=== PATIENT | female | born 1990 | race Caucasian/White ===

== ENCOUNTER 2020-01-04 19:21 | Emergency (ER) | payer OTHER, SELFPAY ==
--- NOTE | ~2020-01-04 | XR_ITS ---
EXAMINATION: XR chest 2V DATE: 01/04/2020 22:01 INDICATION: Right chest wall pain along the costal margin TECHNIQUE: PA and lateral views of the chest were obtained. COMPARISON: Chest radiograph dated 03/18/2017 FINDINGS: The lungs remain clear with no focal airspace opacities, pulmonary edema, pleural effusion or pneumot horax. The cardiomediastinal silhouette is normal. Visualized bones and soft tissues are unremarkable . IMPRESSION: 1. Normal chest radiograph. Reviewed, dictated and finalized at location A. IMPRESSION: 1. Normal chest radiograph.
--- NOTE | 2020-01-04 19:44 | PC.NURSE ---
Consent for release of medical records faxed to [facility].
[2020-01-04 19:45] VITALS: BP 149/95; PULSE 101; RESP 18; TEMP 36.9; O2SAT 96
--- NOTE | 2020-01-04 20:30 | PC.NURSE ---
[facility] contacted about records, states they will fax them now.
--- NOTE | 2020-01-04 20:49 | ED.ABDPAIN ---
HPI - Abdominal Pain General Chief Complaint: Abdominal Pain Stated Complaint: pain under rib cage. R side Source: patient Mode of arrival: ambulatory Limitations: no limitations History of Present Illness HPI narrative: This 29-year-old states she developed a sharp stabbing right upper quadrant pain 2 weeks ago made worse with taking a deep breath, sitting up or standing. Initially the pain was moderate and intermittent, lasting for several days, recurring after a day or so. Sometimes this pain is also associated with right anterior chest pain which shoots directly through to the right scapula. Last evening she ate for the 1st time in several days. Not long afterwards she had exacerbation of this poking -throbbing pain which has persisted throughout the day today. She demonstrates its location along the right medial costal margin, shooting up to the xiphoid process and sternum. She denies radiation into the back or around the abdomen. It is not associated with coughing or shortness of breath, heartburn, change in her bowel movements or melena. 12/26 ultrasound of G.B., CMP and CBC were negative. Review of [facility] records: 12/28 c/o pain above the right breast, right ribs, RUQ radiating to the right posterior shoulder. CMP, Lipase, CBC negative. CT abd/pelvis: bilateral nephrolithiasis. UA (menstruating) LE 1+, 5-10 WBC, 10-20 RBC. Dx. with pyelonephritis, tx with Toradol and Levaquin. 12/30 HIDA scan - negative. 01/03 note indicates improvement with GI cocktail, dx. with acute gastritis. Instructed to f/u with g.i. in 3 -4 weeks, prior if worsening symptoms. She has seen Dr. Dickinson's advanced practitioners Carla López and Nichole brown. After starting Levaquin and Toradol pt. developed a rash on her chest. Taken off both drugs. Started Tramadol today x 2 doses without improvement. Patient states she has had similar right upper quadrant stabbing pain in the past, the last time was 3 weeks ago, which only last for a few minutes. Onset (ago): minute(s) Related Data Home Medications Medication Instructions Recorded Confirmed Remeron See Rx Instructions .ROUTE .COMPLEX 01/04/20 01/04/20 Symbicort See Rx Instructions .ROUTE .COMPLEX 01/04/20 01/04/20 Xanax See Rx Instructions .ROUTE .COMPLEX 01/04/20 01/04/20 albuterol sulfate 1 inh INHALATION QID PRN 01/04/20 01/04/20 ondansetron HCl [Zofran] 4 mg PO Q6H PRN 01/04/20 01/04/20 tramadol 50 mg PO Q6H PRN 01/04/20 01/04/20 Allergies Allergy/AdvReac Type Severity Reaction Status Date / Time iohexol Allergy Rash Verified 01/04/20 22:44 [From contrast - CT, X-RAY] ketorolac [From Toradol] Allergy Hives Verified 01/04/20 19:50 levofloxacin [From Levaquin] Allergy Hives Verified 01/04/20 19:50 Review of Systems Constitutional: Constitutional: Denies chills and Denies fever(s) ENT: Denies dysphagia Cardiovascular: Comments: no other pain or symptoms in her chest. Respiratory: Respiratory: Reports no additional respiratory complaints Gastrointestinal: Gastrointestinal: Reports no additional gastrointestinal complaints Genitourinary: Genitourinary: Reports dysuria Comments: [id number] LMP 12/29/19 urine HCG: negative. Musculoskeletal: Musculoskeletal: Reports no additional musculoskeletal complaints Integumentary/Breasts: Skin/Breast: Denies rash Psychiatric: Psychiatric: Denies anxiety and Denies depression Hematologic/Lymphatic: Hematologic/Lymphatic: Denies easy bruising PMFSH Past Medical History Medical History (Updated 01/06/20 @ 00:00 by Mirza Phan) Asthma Social History Social History (Updated 01/04/20 @ 22:00 by Frankie Woo MD) Smoking status: Current every day smoker Exam Narrative: Exam Narrative: Standing up, leaning over exam table on forearms, head down. Const: Orientation/consciousness: patient oriented x3 HENMT: Head: normal to inspection Mouth: Yes Normal oral and palatal mucosa present and Yes
--- NOTE | 2020-01-04 21:05 | PC.NURSE ---
records from [facility].
--- NOTE | 2020-01-04 21:34 | ECG_ITS ---
Measurements Intervals [place] Rate: 82 P: 81 DC: 188 QRS: 83 QRSD: 88 T: 58 QT: 353 QTc: 413 Interpretive Statements SINUS RHYTHM NORMAL ECG Electronically Signed On 01-05-2020 7:04:35 CDT by Yves Kevin D.O.
[2020-01-04 21:54] LABS: Hematocrit 41.1 % (35.0-49.0); Hemoglobin 14.1 g/dL (12.0-15.0); Mean Corpuscular HGB Conc 34.3 g/dL (32.0-36.0); Mean Corpuscular Hemoglobin 30.7 pg (27.0-31.0); Mean Corpuscular Volume 89.3 fL (78.0-102.0); Mean Platelet Volume 10.2 fl (9.2-11.8); Platelet Count Result 367 K/mm3 (150-420); Red Cell Distribution Width 12.1 % (11.6-14.4); White Blood Count 13.2 K/mm3 (4.8-10.8)
[2020-01-04 21:55] LABS: Add Urine Microscopic? YES; Appearance Urine Sl Cloudy (Clear); Bilirubin Urine Negative (Negative); Blood Urine 3+ (Negative); Color Urine Yellow (Yellow); Glucose Urine UA Negative (Negative); Ketones Urine Trace (Negative); Leukocyte Esterase Ur 2+ (Negative); Nitrate Urine Negative (Negative); Protein Urine Negative (Negative); Specific Grav Ur >= 1.030 (1.010-1.020); Urobilinogen Urine 0.2 mg/dL (0.2-1.0); pH Urine 5.5 (5.0-8.0)
[2020-01-04 22:06] LABS: Bacteria Urine 2+ /hpf; RBC Urine 21-50 /hpf (0-2); Squamous Epithelial Cell Urine Few /hpf (Few); Trichomonas Urine Present /hpf; WBC Urine 31-50 /hpf (0-3)
[2020-01-04 22:09] LABS: D Dimer 1.07 mg/L (0.19-0.50)
[2020-01-04 22:13] LABS: Alanine Aminotransferase 17 U/L (14-59); Albumin Level 3.7 g/dL (3.4-5.0); Alkaline Phosphatase 87 U/L (46-116); Aspartate Amino Transferase 9 U/L (15-37); Bilirubin Direct 0.2 mg/dL (0-0.2); Bilirubin,Total 0.7 mg/dL (0.00-1.00); Lipase 33 U/L (73-393); Total Protein 7.3 g/dL (6.4-8.2)
[2020-01-04 22:14] LABS: Troponin I < 0.02 ng/mL (0.00-0.056)
[2020-01-04] MEDS: CYCLOBENZAPRINE HCL 10 MG TABLET PO (22:15)
[2020-01-04 22:21] LABS: Pregnancy On Board Control Positive; Urine Pregnancy Test Negative
--- NOTE | 2020-01-04 23:07 | PC.NURSE ---
Pt continues to c/o pain and states that she is scared to go home because she doesn't know what is causing the pain. Care plan discussed with pmd.
[2020-01-04 23:12] VITALS: BP 115/70; PULSE 96; RESP 20; O2SAT 96
--- NOTE | 2020-01-04 23:12 | PC.NURSE ---
report to chrissie ACE
--- NOTE | 2020-01-04 23:25 | PC.NURSE ---
Assumed care of patient from Parul ACE. Patient resting in no distress. ERP discussed options with patient in regards to evaluation of her elevated D-Dimmer, pt has opted to be discharged home to pre-medicate and return tomorrow as an outpatient. Awaiting further orders and dispo
[2020-01-04] MEDS: ENOXAPARIN 120 MG/0.8 ML SYRINGE SUB-Q (23:59)
[2020-01-04] MEDS: predniSONE 40 MG, predniSONE 10 MG 50 MG PO (23:59)
[2020-01-05] MEDS: cefTRIAXone 1 GM VIAL IM (00:03)
[2020-01-05 00:24] VITALS: BP 115/70; PULSE 96; RESP 18; O2SAT 98
== END 2020-01-05 00:23 | disposition home or self-care (01) ==
PROVIDERS: Emergency Provider Family Medicine; PCP Family Medicine
DX: R07.9 Chest pain, unspecified (principal); R79.1 Abnormal coagulation profile; N39.0 Urinary tract infection, site not specified
CPT/HCPCS: 36415; 71046; 80076; 81001; 81025; 83690; 84484; 85027; 85380; 86140; 87086; 87088; 93005; 96372; 99284; A9270; J0696; J1650; J7512

== ENCOUNTER 2020-01-05 14:52 | Outpatient (CLI) | payer OTHER, SELFPAY ==
--- NOTE | ~2020-01-05 | CT_ITS ---
EXAMINATION: CTA chest PE protocol DATE: 01/05/2020 15:59 INDICATION: Right-sided chest pain, shortness of breath, dyspnea on exertion TECHNIQUE: Computed tomography angiography (CTA) of the chest was performed with 100 mL Omnipaque-350 intravenous contrast timed to evaluate the pulmonary arteries. Coronal maximum intensity projection 3D-reconstructions were created by the technologist. The dose-length product (DLP) was 383.54 mGy-cm. Automated exposure control and iterative reconstruction technique were employed. COMPARISON: None. FINDINGS: The pulmonary arteries are well-opacified. No pulmonary embolism is identified. The lungs a re free of acute opacities. There is no pleural effusion or pneumothorax. A 4 mm nodule of the left l ower lobe likely reflects old granulomatous disease. No pathologically enlarged thoracic lymph nodes are identified. The heart size is normal. The visualized osseous structures are unremarkable. IMPRESSION: 1. No pulmonary embolism or acute cardiopulmonary abnormality. Reviewed, dictated and finalized at location A.
[2020-01-05 15:23] LABS: Estimated Glomerular Filt Rate > 60
== END 2020-01-05 14:53 | disposition home or self-care (01) ==
LOC: CHSIMG 14:54
PROVIDERS: PCP Family Medicine; Visit Provider Family Medicine
DX: R07.9 Chest pain, unspecified (principal); R79.89 Other specified abnormal findings of blood chemistry; R06.02 Shortness of breath
CPT/HCPCS: 71275; Q9965

== ENCOUNTER 2020-03-02 21:49 | Emergency (ER) | payer OTHER, SELFPAY ==
[2020-03-02 22:04] VITALS: BP 125/66; PULSE 97; RESP 16; TEMP 36.4; O2SAT 99
--- NOTE | 2020-03-02 22:12 | ED.DENTAL ---
HPI - Dental/Oral General Chief complaint: Dental/Oral Stated complaint: tooth ache Source: patient History of Present Illness HPI Narrative: This is a 29-year-old female presents with chronic dental caries and dental pain currently having chronic dental caries in the right upper molar region has not seen her dentist recently, has no fever chills has pain in the right upper molar area and she took ibuprofen, states that usually antibiotics help with the pain and inflammation. Currently no nausea vomiting no fever chills no shortness of breath. Teeth map: 1. dental caries Onset (ago): month(s) Duration: constant Severity: moderate Severity scale (1-10): 6 Relieving factors: NSAIDs Exacerbating factors: chewing and cold Context: history of dental caries Associated symptoms: gum swelling Treatment prior to arrival: oral analgesic Related Data Home Medications Medication Instructions Recorded Confirmed Remeron See Rx Instructions .ROUTE .COMPLEX 01/04/20 03/02/20 Symbicort See Rx Instructions .ROUTE .COMPLEX 01/04/20 01/04/20 Xanax See Rx Instructions .ROUTE .COMPLEX 01/04/20 03/02/20 albuterol sulfate 1 inh INHALATION QID PRN 01/04/20 01/04/20 ondansetron HCl [Zofran] 4 mg PO Q6H PRN 01/04/20 01/04/20 tramadol 50 mg PO Q6H PRN 01/04/20 01/04/20 venlafaxine [Effexor XR] 150 mg PO DAILY 03/02/20 03/02/20 Allergies Allergy/AdvReac Type Severity Reaction Status Date / Time iohexol Allergy Rash Verified 03/02/20 22:10 [From contrast - CT, X-RAY] ketorolac [From Toradol] Allergy Hives Verified 03/02/20 22:10 levofloxacin [From Levaquin] Allergy Hives Verified 03/02/20 22:10 Review of Systems Review of Systems: All systems reviewed & are unremarkable except as noted in HPI and below PMFSH Past Medical History Medical History Asthma Social History Social History Smoking status: Current every day smoker Gender identity (if verbalized by the patient): Female Exam Const: General: no acute distress and alert Orientation/consciousness: patient oriented x3 HENMT: Head: normal to inspection Eyes: Conjunctivae: conjunctivae normal Pupils: Equal, round and reactive pupils present Neck: Neck: normal visual inspection, no lymphadenopathy and no meningeal signs Chest: Chest palpation & inspection: normal inspection of the chest Resp: Effort & Inspection: normal respiratory effort Auscultation: clear to auscultation bilaterally Cardio: Rate: regular rate Rhythm: regular rhythm GI: Auscultation: normal bowel sounds : General: Yes no CVA tenderness Urinary Catheter: Urinary Catheter: patent and draining Skin: General skin exam: normal color Rashes: no rashes Neuro: General: patient oriented x3 and moves all extremities Psych: Appearance: grossly normal Mental Status: mental status grossly normal Thought content: Yes Normal thought content present Course Course Emergency Course: Patient received IM ceftriaxone, and advised to follow-up with her dentist. Vital Signs Vital signs: Vital Signs Temperature 36.4 C L 03/02/20 22:04 Pulse Rate 97 03/02/20 22:04 Respiratory Rate 16 03/02/20 22:04 Blood Pressure 125/66 03/02/20 22:04 Pulse Oximetry 99 03/02/20 22:04 Temperature 36.4 C L 03/02/20 22:04 Pulse Rate 97 03/02/20 22:04 Respiratory Rate 16 03/02/20 22:04 Blood Pressure 125/66 03/02/20 22:04 Pulse Oximetry 99 03/02/20 22:04 Critical Care Time Critical Care Time Critical Care Time: No Discharge Plan Discharge Clinical Impression: Dental caries, Toothache, Dental abscess Patient Disposition: Home, Self-Care Condition: Stable Instructions: Antibiotic Form, Dental Abscess (ED), Toothache (ED) Additional Instructions: Take medicine as prescribed and follow-up with dentist as soon as possible for further evaluation. Pre
[2020-03-02] MEDS: LIDOCAINE HCL 1% LOCAL INJ 20 ML VIAL (22:31)
[2020-03-02] MEDS: cefTRIAXone 1 GM VIAL IM (22:31)
[2020-03-02 23:06] VITALS: BP 135/82; PULSE 88; RESP 20; O2SAT 98
== END 2020-03-02 23:17 | disposition home or self-care (01) ==
PROVIDERS: Emergency Provider Emergency Medicine; PCP Family Medicine
DX: K02.9 Dental caries, unspecified (principal); K08.89 Other specified disorders of teeth and supporting structures; K04.7 Periapical abscess without sinus
CPT/HCPCS: 96372; 99283; J0696

== ENCOUNTER 2021-08-26 19:06 | Emergency (ER) | payer OTHER, SELFPAY ==
--- NOTE | ~2021-08-26 | XR_ITS ---
EXAMINATION: XR chest 1V portable EXAM DATE: 08/26/2021 21:04 INDICATION: Cough, Hx/o Asthma . TECHNIQUE: Portable AP frontal chest x-ray was obtained. Comparison is made to prior examination from 01/04/2020. FINDINGS: Lungs are hyperinflated. The lungs are clear. There are no pleural effusions. The cardiom ediastinal silhouette is within normal limits. There is no pneumothorax suspected. The bones and so ft tissues are unremarkable. IMPRESSION:Hyperinflation. Reviewed, dictated and finalized at location G. ER TESTER IMPRESSION:Hyperinflation.
[2021-08-26 19:25] VITALS: BP 125/80; PULSE 122; RESP 20; TEMP 37.6; O2SAT 97
--- NOTE | 2021-08-26 19:32 | ED.URI ---
HPI - URI/Sore Throat General Chief Complaint: Upper Respiratory Infection Stated Complaint: hurts to breathe, ears hurt Time Seen by Provider: 08/26/21 19:32 Source: patient and RN notes reviewed Mode of arrival: ambulatory Limitations: no limitations History of Present Illness HPI Narrative: patient states she had COVID in February of 2021. She is still unvaccinated. She has been using her albuterol nebulizer home. MD elicited complaint: cough Pertinent past history: asthma Onset (ago): day(s) (1) Consistency: intermittent Severity: moderate Description of mucous: purulent Able to tolerate fluids by mouth: Yes Associated symptoms: myalgias and other ( hurts to take a deep breath.) Related Data Home Medications Medication Instructions Recorded Confirmed Remeron See Rx Instructions .ROUTE .COMPLEX 01/04/20 08/26/21 Symbicort See Rx Instructions .ROUTE .COMPLEX 01/04/20 08/26/21 Xanax 0.5 mg PO DAILY 01/04/20 08/26/21 albuterol sulfate 1 inh INHALATION QID PRN 01/04/20 08/26/21 albuterol sulfate 2.5 mg CONTINUOUS NEBULIZATION PRN 08/26/21 08/26/21 PRN Allergies Allergy/AdvReac Type Severity Reaction Status Date / Time iohexol Allergy Rash Verified 03/02/20 22:10 [From contrast - CT, X-RAY] ketorolac [From Toradol] Allergy Hives Verified 03/02/20 22:10 levofloxacin [From Levaquin] Allergy Hives Verified 03/02/20 22:10 Review of Systems Review of Systems: All systems reviewed & are unremarkable except as noted in HPI and below Constitutional: Constitutional: Denies chills and Denies fever(s) ENT: Denies sore throat Gastrointestinal: Gastrointestinal: Denies diarrhea, Denies nausea and Denies vomiting PMFSH Past Medical History Medical History Asthma Depression Social History Social History Smoking status: Current every day smoker Gender identity (if verbalized by the patient): Female Exam Const: General: healthy appearing, no acute distress and alert Nutritional Appearance: well nourished Orientation/consciousness: patient oriented x3 Other: Female nurse in room during examination. HENMT: Head: normal to inspection Ears: external ears normal Eyes: Conjunctivae: conjunctivae normal Pupils: Equal, round and reactive pupils present EOM: EOMs intact bilaterally Neck: Neck: normal visual inspection Resp: Effort & Inspection: normal respiratory effort Auscultation: clear to auscultation bilaterally Cardio: Rate: regular rate Rhythm: regular rhythm GI: GI Palp: Yes Soft to palpation and No Tenderness to palpation present (GI) Auscultation: normal bowel sounds Back/Spine/Pelvis: Cervical Spine: cervical ROM normal Thoracic/Lumbar Spine: thoraco-lumbar ROM normal Skin: General skin exam: normal color Rashes: no rashes Neuro: General: patient oriented x3, moves all extremities, no meningeal signs, no focal motor deficits and CN's II-XI intact bilaterally Speech: normal speech Gait exam (Neuro): Normal gait present Extrem: General: normal to inspection and no clubbing, cyanosis or edema Psych: Appearance: grossly normal and well kempt Mental Status: mental status grossly normal Affect: normal affect Attitude: cooperative Thought content: Yes Normal thought content present MDM - URI/Sore Throat Lab Data Attestation: I reviewed the patient's lab results. Imaging Data Radiologist's impression: hyperinflation otherwise no other abnormalities Discharge Plan Discharge Clinical Impression: Influenza Patient Disposition: Home, Self-Care Condition: Stable Instructions: Influenza (ED) Prescriptions: New oseltamivir [Tamiflu] 75 mg capsule 75 mg PO Q12H 5 Days Qty: 10 RF: 0 No Action albuterol sulfate 90 mcg/actuation Hfa Aerosol Inhaler 1 inh INHALATION QID PRN (Reason: Shortness Of Breath Or Wheezing) RF: 0 Remeron tablet See Rx Instruct
--- NOTE | 2021-08-26 19:47 | ECG_ITS ---
Measurements Intervals [place] Rate: 116 P: 75 DE: 176 QRS: 76 QRSD: 91 T: 44 QT: 309 QTc: 430 Interpretive Statements SINUS TACHYCARDIA POSSIBLE LEFT ATRIAL ENLARGEMENT BASELINE ARTIFACT- I, III, AVR, AVL, AVF, V1-V2 ABNORMAL ECG Electronically Signed On 08-26-2021 20:21:24 ORE BRIDGE OPERATOR by Yves Kevin D.O.
[2021-08-26 20:09] LABS: Basophils Absolute Auto 0.04 K/mm3 (0.00-0.10); Basophils Percent Auto 0.7 % (0.0-1.0); Eosinophils Absolute Auto 0.17 K/mm3 (0.02-0.50); Hematocrit 40.9 % (35.0-49.0); Hemoglobin 14.2 g/dL (12.0-15.0); Immature Granulocyte Absolute 0.01 K/mm3 (0.00-0.00); Immature Granulocyte Percent A 0.2 % (0.0-0.0); Lymphocytes Absolute Auto 0.67 K/mm3 (1.10-4.50); Lymphocytes Percent Auto 11.7 % (18.0-42.0); Mean Corpuscular HGB Conc 34.7 g/dL (32.0-36.0); Mean Corpuscular Hemoglobin 30.8 pg (27.0-31.0); Mean Corpuscular Volume 88.7 fL (78.0-102.0); Mean Platelet Volume 10.6 fl (9.2-11.8); Monocytes Absolute Auto 0.32 K/mm3 (0.10-0.90); Monocytes Percent Auto 5.6 % (2.0-11.0); Neutrophils Absolute Auto 4.5 K/mm3 (1.7-7.2); Neutrophils Percent Auto 78.8 % (50.0-70.0); Platelet Count Result 244 K/mm3 (150-420); Red Blood Count 4.61 M/mm3 (4.20-5.40); Red Cell Distribution Width 11.9 % (11.6-14.4); White Blood Count 5.7 K/mm3 (4.8-10.8)
[2021-08-26 20:24] LABS: Alanine Aminotransferase 22 U/L (14-59); Albumin Level 3.4 g/dL (3.4-5.0); Alkaline Phosphatase 80 U/L (46-116); Anion Gap 10 mmol/L (8-16); Aspartate Amino Transferase 11 U/L (15-37); Bilirubin,Total 0.3 mg/dL (0.00-1.00); Blood Urea Nitrogen 8 mg/dL (7-18); CRP 0.9 mg/dL (0.0-0.9); Calcium 8.2 mg/dL (8.5-10.1); Carbon Dioxide 24 mmol/L (21-32); Chloride 100 mmol/L (98-108); Estimated CRCL calculation 98 ml/min; Estimated Glomerular Filt Rate > 60; Glucose 97 mg/dL (70-99); Magnesium 1.8 mg/dL (1.8-2.4); Osmolality Calculated 276 mOsm/kg (285-295); Potassium 3.7 mmol/L (3.5-5.1); Sodium 134 mmol/L (136-145); Total Protein 6.8 g/dL (6.4-8.2)
[2021-08-26 20:49] LABS: SARS-CoV-2 RNA PCR Negative (Negative)
[2021-08-26 20:51] LABS: Influenza Control Valid (Valid)
[2021-08-26] MEDS: OSELTAMIVIR PHOSPHATE 75 MG CAPSULE PO (21:16)
[2021-08-26 21:27] VITALS: BP 133/74; PULSE 100; RESP 18; TEMP 37.2; O2SAT 97
== END 2021-08-26 21:29 | disposition home or self-care (01) ==
PROVIDERS: Emergency Provider Emergency Medicine; PCP Family Medicine
DX: J11.1 Influenza due to unidentified influenza virus with other respiratory manifestations (principal); Z20.822 Contact with and (suspected) exposure to COVID-19
CPT/HCPCS: 71045; 80053; 83735; 85025; 86140; 87804; 93005; 99283; A9270; C9803; U0003; U0005

== ENCOUNTER 2023-01-26 18:07 | Emergency (ER) | payer OTHER, SELFPAY ==
[2023-01-26 18:09] VITALS: BP 142/97; PULSE 88; RESP 20; TEMP 36.6; O2SAT 98
[2023-01-26] MEDS: traMADol HCL (*CRX) 50 MG TABLET PO (18:57)
[2023-01-26] MEDS: BENZOCAINE/TETRACAINE SPRAY (*SP) 56 ML AEROSOL 2 SPRAY MUCOUS MEM (19:42)
[2023-01-26] MEDS: LIDOCAINE HCL 2% VISC SOLN 15 ML UDC PO (19:42)
[2023-01-26] MEDS: MAGNESIUM HYDROXIDE SUSP 30 ML UDC PO (19:42)
--- NOTE | 2023-01-26 20:08 | ED.GENADULT ---
HPI - General Adult General Chief complaint: Dental/Oral Stated complaint: R upper tooth ache Time Seen by Provider: 01/26/23 18:28 History of Present Illness HPI narrative: complains of left upper tooth 12. Missing filling 3 days ago started hurting last night taken Tylenol ibuprofen and it has been gradually getting her teeth fixed. . Past medical history asthma anxiety depression panic attacks agoraphobia precancerous cervical cells allergies contrast media Vistaril BuSparone past surgical history: Tooth extractions been eating drinking voiding and stooling fine no fever cough shortness of breath sore throat runny nose. Had some left-sided nasal congestion. No rash or itching bleeding or bruising lumps or bumps or swelling. She is walking talking seen hearing fine. Denies any other complaints. Denies any other pain. Related Data Home Medications Medication Instructions Recorded Confirmed Symbicort See Rx Instructions .Route .COMPLEX 01/04/20 01/26/23 Xanax 0.5 mg PO DAILY PRN Anxiety 01/04/20 01/26/23 albuterol sulfate 90 mcg/actuation 1 inh inhalation QID PRN Shortness 01/04/20 01/26/23 aerosol inhaler Of Breath Or Wheezing albuterol sulfate 2.5 mg/3 mL 2.5 mg continuous nebulization PRN 08/26/21 01/26/23 (0.083 %) solution for nebulization PRN Shortness Of Breath Or Wheezing escitalopram oxalate 20 mg tablet 20 mg PO DAILY 01/26/23 01/26/23 prazosin 1 mg capsule 1 mg PO HS 01/26/23 01/26/23 Allergies Allergy/AdvReac Type Severity Reaction Status Date / Time iohexol Allergy Rash Verified 03/02/20 22:10 [From contrast - CT, X-RAY] ketorolac [From Toradol] Allergy Hives Verified 03/02/20 22:10 levofloxacin [From Levaquin] Allergy Hives Verified 03/02/20 22:10 Review of Systems Review of Systems: All systems reviewed & are unremarkable except as noted in HPI and below PMFSH Past Medical History Medical History Asthma Depression Social History Social History Smoking status: Current every day smoker Gender identity (if verbalized by the patient): Female Exam Narrative: White female no apparent distress.? Head normocephalic, atraumatic.? Eyes conjunctiva pink sclera nonicteric.? Extraocular movements are intact.? Ears externally normal.? mouth: Multiple dental caries and rotted teeth to the gumline. Tooth 12 Has a missing filling is rotted there is swelling of the gum above the 2 which is tender. She has moist mucous membranes without exudates.? Neck is supple nontender no lymphadenopathy.? Back is nontender.? Lungs are clear.? Heart is regular rate and rhythm without murmurs gallops or rubs.? Chest wall is nontender.? Extremities no cyanosis clubbing or edema.? Skin is warm and dry without rashes or lesions.? Neurological patient is alert and oriented x4.? Motor and sensory grossly intact.? Gait is normal. Course Vital Signs Vital signs: Vital Signs Temperature 36.6 C 01/26/23 18:09 Pulse Rate 88 01/26/23 18:09 Respiratory Rate 20 01/26/23 18:09 Blood Pressure 142/97 H 01/26/23 18:09 Pulse Oximetry 98 01/26/23 18:09 Oxygen Delivery Room Air 01/26/23 18:09 Temperature 36.6 C 01/26/23 18:09 Pulse Rate 88 01/26/23 18:09 Respiratory Rate 20 01/26/23 18:09 Blood Pressure 142/97 H 01/26/23 18:09 Pulse Oximetry 98 01/26/23 18:09 Oxygen Delivery Room Air 01/26/23 18:09 Medical Decision Making [facility] Narrative Medical decision making narrative: patient was placed in 3 history of physical was performed. She is given Toradol 50 mg p.o. and a dental cotton ball with a MOM, Cetacaine spray and viscous lidocaine which gave the patient great relief. Rest of the formulation was thrown out the trash per year protocol. she is given pen VK 500 Independent Historian: ? patient Differential Dx includes but not limited to:? d
[2023-01-26 20:35] VITALS: BP 129/99; PULSE 76; RESP 17; TEMP 36.6; O2SAT 98
--- NOTE | 2023-01-26 21:10 | PC.NURSE ---
pt discharged before medication was given. I contacted pt and pt stated that she will wait until the morning and pickup her medication at her pharmacy. Md Baires informed of medication that was not given.
== END 2023-01-26 20:39 | disposition home or self-care (01) ==
PROVIDERS: Emergency Provider Emergency Medicine; PCP Family Medicine
DX: K04.7 Periapical abscess without sinus (principal); F17.200 Nicotine dependence, unspecified, uncomplicated
CPT/HCPCS: 99283; A9270